=== PATIENT | male | born 1995 | race African-American/Black ===

== ENCOUNTER 2018-08-24 12:56 | Emergency (ER) | payer OTHER ==
--- NOTE | 2018-08-24 14:37 | ED Physician Documentation ---
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 He is been back just for 2 days after deployment long- term in [employer]. For the last 2 weeks he has had a cough, runny nose, sore throat and fevers that have been unmeasured. He denies shortness of breath.) Review of Systems Ten Systems: 10 systems reviewed and negative Constitutional: reports: Fever, Chills, Myalgias, Fatigue Cardiac: denies: Chest pain / pressure, Palpitations Respiratory: reports: Dyspnea, Cough. denies: Hemoptysis, Wheezing PD PAST MEDICAL HISTORY - Present Medications Home Medications: Ambulatory Orders Medication Instructions Recorded Confirmed Albuterol Sulf [Ventolin Hfa 1 - 2 puffs INH Q4HR PRN #1 inhaler 08/24/18 Inhaler] Benzonatate [Tessalon Perle] 100 - 200 mg PO TID PRN #30 capsule 08/24/18 Doxycycline Hyclate 100 mg PO BID #14 capsule 08/24/18 - Allergies Allergies/Adverse Reactions: Allergies Allergy/AdvReac Type Severity Reaction Status Date / Time No Known Drug Allergies Allergy Verified 08/24/18 13:13 PD ED PE NORMAL - Vitals Vital signs reviewed: Yes - General General: Alert and oriented X 3, No acute distress - HEENT HEENT: Other (He has a small herpetic lesion on the right lower lip, oropharynx otherwise normal. Clear rhinorrhea.) - Neck Neck: Supple, no meningeal sign, No bony TTP - Cardiac Cardiac: RRR, No murmur - Respiratory Respiratory: No respiratory distress, Other (Mild left basilar rhonchi) - Back Back: No CVA TTP, No spinal TTP - Derm Derm: Normal color, Warm and dry - Extremities Extremities: No edema, No calf tenderness / cord - Neuro Neuro: Alert and oriented X 3, Normal speech Results - Vitals Vitals: Vital Signs - 24 hr 08/24/18 08/24/18 13:11 15:14 Temperature 36.9 C Heart Rate 76 85 Respiratory 20 20 Rate Blood Pressure 147/101 H 139/85 H O2 Saturation 100 98 Oxygen O2 Source Room air - Labs Labs: Laboratory Tests 08/24/18 08/24/18 14:45 14:45 WBC 3.0 L RBC 5.26 Hgb 16.3 Hct 46.3 MCV 88.0 MCH 30.9 MCHC 35.1 RDW 13.1 Plt Count 221 MPV 7.6 Neut # (Auto) 0.9 L Lymph # (Auto) 1.4 L [place] # (Auto) 0.6 Eos # (Auto) 0.0 Baso # (Auto) 0.0 Absolute Nucleated RBC 0.00 Nucleated RBC % 0.1 Sodium 136 Potassium 3.3 L Chloride 99 L Carbon Dioxide 27 Anion Gap 10.0 BUN 14 Creatinine 1.0 Estimated GFR (MDRD) 111 Glucose 94 Calcium 9.4 Total Bilirubin 0.7 AST 26 ALT 17 Alkaline Phosphatase 62 Total Protein 8.5 H Albumin 4.3 Globulin 4.2 Albumin/Globulin Ratio 1.0 Lipase 24 - Rads (name of study) 2v chest Radiology: EMP read contemporaneously (NAD) PD MEDICAL DECISION MAKING - ED course ED course: 23-year-old gentleman with what sounds like bronchitis, the time course would merit a trial of antibiotics given IDSA guidelines. Lab work and a chest x-ray was done given recent foreign travel to the [place] without relevant findings except for mild leukopenia. Departure - Departure Disposition: 01 Home, Self Care Clinical Impression: Bronchitis Condition: Good Record reviewed to determine appropriate education?: Yes Instructions: ED Upper Resp Infec Abx Tx Prescriptions: Albuterol Sulf [Ventolin Hfa Inhaler] 1 - 2 puffs INH Q4HR PRN #1 inhaler PRN Reason: Shortness Of Air/Wheezing Benzonatate [Tessalon Perle] 100 - 200 mg PO TID PRN #30 capsule PRN Reason: Cough Doxycycline Hyclate 100 mg PO BID #14 capsule Comments: Call your doctor to arrange a follow-up appointment, make the next available appointment. In the interim, return anytime if worse or if new symptoms develop. Your blood pressure was elevated today on check into the emergency department. This does not mean that you have hypertension, it is a common phenomenon to come to the emergency department and have elevated blood pressure. I recommend that you see your primary care physician within the week to have it rechecked when you are feeling better. Forms: Activity restrictions
[2018-08-24 14:51] LABS: BASOPHILS % (AUTO) 0.7 %; HGB - HEMOGLOBIN 16.3 g/dL (14.0-18.0); LYMPHOCYTES # (AUTO) 1.4 10^3/uL (1.5-3.5); MEAN CORPUSCULAR HEMOGLOBIN 30.9 pg (27.0-31.0); MEAN CORPUSCULAR HGB CONC 35.1 g/dL (32.0-36.0); MEAN PLATELET VOLUME 7.6 fL (7.4-11.4); MONOCYTES # (AUTO) 0.6 10^3/uL (0.0-1.0); MONOCYTES % (AUTO) 21.1 %; NEUTROPHILS # (AUTO) 0.9 10^3/uL (1.5-6.6); NEUTROPHILS % (AUTO) 31.2 %; PLT - PLATELET COUNT 221 10^3/uL (130-450); RED BLOOD COUNT 5.26 10^6/uL (4.70-6.10); RED CELL DISTRIBUTION WIDTH 13.1 % (12.0-15.0)
[2018-08-24 15:03] LABS: ALBUMIN 4.3 g/dL (3.2-5.5); BILIRUBIN,TOTAL 0.7 mg/dL (0.2-1.0); CALCIUM 9.4 mg/dL (8.5-10.3); TOTAL PROTEIN 8.5 g/dL (6.7-8.2)
--- NOTE | 2018-08-24 15:14 | XRAY Report ---
Reason: cough fever Procedure Date: 08/24/2018 Accession Number: [id number] / [id number] Procedure: XR - Chest 2 View X-Ray CPT Code: 19944 FULL RESULT: EXAM: CHEST RADIOGRAPHY EXAM DATE: 08/24/2018 03:03 PM. CLINICAL HISTORY: Cough, fever. COMPARISON: None. TECHNIQUE: 2 views. FINDINGS: Lungs/Pleura: No focal opacities evident. No pleural effusion. No pneumothorax. Normal volumes. Mediastinum: Heart and mediastinal contours are unremarkable. Other: None. IMPRESSION: No acute cardiopulmonary abnormality. [facility]
[2018-08-24 15:15] VITALS: BP 139/85
== END 2018-08-24 15:41 | disposition home or self-care (01) ==
LOC: ED 12:56
DX: J40 Bronchitis, not specified as acute or chronic (principal); R03.0 Elevated blood-pressure reading, without diagnosis of hypertension
CPT/HCPCS: 36415; 71046; 80053; 83690; 85025; 99283